=== PATIENT | female | born 1945 | race African-American/Black ===

== ENCOUNTER 2018-01-01 08:58 | Emergency (ER) | payer BC ==
[~2018-01-01] VITALS: Ht 160 cm; Wt 79.4 kg
[~2018-01-01 08:58] MED LIST: AFEDITAB CR60 M1 PO; COZAAR 50 MG TA50 M2 PO
[2018-01-01] MEDS ORDERED: FISH OIL 1,001000 M2 PO (09:10)
[2018-01-01] MEDS ORDERED: CENTRUM SILVER1 EAC4 PO (09:10)
[2018-01-01] MEDS ORDERED: AMITRIPTYLINE H25 M4 PO (09:11)
== END 2018-01-01 10:15 | disposition home or self-care (01) ==
LOC: ER 08:58
DX: S93.401A Sprain of unspecified ligament of right ankle, initial encounter (principal); X50.3XXA Overexertion from repetitive movements, initial encounter; Y93.89 Activity, other specified; Y92.89 Other specified places as the place of occurrence of the external cause; Y99.8 Other external cause status

== ENCOUNTER 2019-01-05 09:05 | Emergency (ER) | payer BC ==
[~2019-01-05] VITALS: Ht 160 cm; Wt 78.9 kg
[~2019-01-05 09:05] MED LIST changes: +AMITRIPTYLINE H25 M4 PO; +CENTRUM SILVER1 EAC4 PO; +FISH OIL 1,001000 M2 PO
[2019-01-05 10:12] LABS: EOSINOPHILS 1.7 % (0.0-3.0); HEMOGLOBIN 13.9 gm/dL (12.0-15.0); MCH 28.9 pg (26.0-34.0); MCHC 33.9 g/dL (28.0-37.0); MCV 85.2 fL (80.0-100.0); MONOCYTES 9.5 % (1.0-8.0); PLATELET COUNT 217 thou/uL (150-400); POLYS 53.8 % (36.0-66.0); RBC 4.81 mil/uL (4.20-5.00); RDW 13.1 % (10.5-14.5); WBC 5.6 thou/uL (4.0-11.0)
[2019-01-05 10:17] LABS: CALCIUM 9.8 mg/dL (8.5-10.1); POTASSIUM 3.4 mmol/L (3.5-5.1)
[2019-01-05] MEDS ORDERED: CETIRIZINE HCL5 MG PO (10:38)
[2019-01-05] MEDS ORDERED: AFRIN30 ML NASAL (10:38)
[2019-01-05] MEDS ORDERED: PROMETH-CODEIN 65 ML PO (10:38)
[2019-01-05 11:10] VITALS: BP 131/68
--- NOTE | 2019-01-05 12:19 | EKG ---
[place] [address] [employer] [place] [address] ELECTROCARDIOGRAM REPORT Name: VIRIDIANA PATTON [id number] ������������������ Admission: 01/05/19 ������������������ Attend Phys: Discharge: 01/05/19 ������������������ Date of : 49 Report #: [id number] ����������������������������������������������������������������� [id number] THIS REPORT FOR: //name// [facility] ED Test Date: 2019-01-05 Test Time: 10:56:33 Pat Name: VIRIDIANA PATTON Department: Room: Gender: F Licensing Coordinator: KOKI : 1945 Requested By: Rashid Koch Order Number: [id number] MD: Edu Paredes Measurements Intervals [place] Rate: 67 P: 48 [place]: 155 QRS: -17 QRSD: 77 T: 32 QT: 560 QTc: 592 Interpretive Statements Sinus rhythm LVH by voltage Leftward axis Borderline left atrial enlargement Poor R-wave progression Nonspecific ST-T wave changes Baseline wander Compared to ECG 09/30/2007 11:12:49 No significant changes Electronically Signed On 01-05-2019 12:19:10 BLADE CHANGER by Edu Paredes [email or web address] ��������������������������������������������� <ELECTRONICALLY SIGNED> ���������������������������������������� By: Edu Paredes MD ��������������������������������������������� 01/05/19 1219 1056 1056 Edu Paredes MD /EPI
== END 2019-01-05 11:12 | disposition home or self-care (01) ==
LOC: ER 09:05
PROVIDERS: Physician Assistant
DX: R05 Cough (principal); R09.82 Postnasal drip; R09.3 Abnormal sputum

== ENCOUNTER 2020-03-23 10:18 | Emergency (ER) | payer BC ==
[~2020-03-23] VITALS: Ht 160 cm; Wt 81.2 kg
[~2020-03-23 10:18] MED LIST changes: +AFRIN30 ML NASAL; +CETIRIZINE HCL5 MG PO; +PROMETH-CODEIN 65 ML PO
[2020-03-23 11:07] LABS: ABSOLUTE NEUTROPHILS 2.7 thou/uL (1.4-8.2); BASOPHILS 1.2 % (0.0-2.0); EOSINOPHILS 3.2 % (0.0-3.0); HEMATOCRIT 39.6 % (37.0-47.0); HEMOGLOBIN 13.3 gm/dL (12.0-15.0); LYMPHOCYTES 42.8 % (24.0-44.0); MCH 29.1 pg (26.0-34.0); MCHC 33.6 g/dL (28.0-37.0); MCV 86.5 fL (80.0-100.0); MONOCYTES 11.3 % (1.0-8.0); PLATELET COUNT 208 thou/uL (150-400); POLYS 41.5 % (36.0-66.0); RBC 4.58 mil/uL (4.20-5.00); RDW 13.4 % (10.5-14.5); WBC 6.4 thou/uL (4.0-11.0)
[2020-03-23 11:22] LABS: ANION GAP 7 mmol/L (7-16); BUN 20 mg/dL (7-18); CALCIUM 9.4 mg/dL (8.5-10.1); CHLORIDE 103 mmol/L (98-107); CO2 29 mmol/L (21-32); CREATININE 0.9 mg/dL (0.6-1.0); GLUCOSE 98 mg/dL (74-106); POTASSIUM 3.4 mmol/L (3.5-5.1); SODIUM 139 mmol/L (136-145)
[2020-03-23 11:33] LABS: TROPONIN-I <0.06 ng/mL (<0.06)
[2020-03-23 12:20] VITALS: BP 120/67
--- NOTE | 2020-03-24 08:06 | EKG ---
[facility] [place] [address] ELECTROCARDIOGRAM REPORT Name: VIRIDIANA PATTON Room #: [facility]#: [id number] Admission: 03/23/20 Attend Phys: Discharge: 03/23/20 Date of : 49 Report #: [id number] THIS REPORT FOR: cc: Kori Martini MD, Karla L. MD Lundgren,Pineda Mojica MD [facility] ~ THIS REPORT FOR: //name// [facility] ED Test Date: 2020-03-23 Test Time: 10:25:10 Pat Name: VIRIDIANA PATTON Department: Room: Gender: F Banana Expert: PHILIP : 1945 Requested By: Dave Rivera Order Number: [id number] MD: Pineda Miles Measurements Intervals [place] Rate: 75 P: 52 [place]: 139 QRS: -18 QRSD: 91 T: -5 QT: 395 QTc: 442 Interpretive Statements Sinus rhythm Multiple premature complexes, vent & supraven Borderline T abnormalities Baseline wander in lead(s) II,aVF Compared to ECG 01/05/2019 10:56:33 Ventricular and supraventricular complexes are now present Electronically Signed On 03-24-2020 8:04:10 CDT by Pineda Miles [email or web address] <ELECTRONICALLY SIGNED> By: Pineda Miles MD, [facility] 03/24/20 0804 1025 1025 Pineda Miles MD, [facility] /EPI
== END 2020-03-23 12:10 | disposition home or self-care (01) ==
LOC: ER 10:18
PROVIDERS: Emergency Medicine
DX: R10.13 Epigastric pain (principal); R07.89 Other chest pain; K21.9 Gastro-esophageal reflux disease without esophagitis; I10 Essential (primary) hypertension; I25.2 Old myocardial infarction; Z79.899 Other long term (current) drug therapy

== ENCOUNTER → 2020-05-05 | Outpatient (CLI) | payer OTHER | LOC: CAT 13:49 | PROVIDERS: ATTEND Internal Medicine | DX: Z13.6 Encounter for screening for cardiovascular disorders (principal); I25.10 Atherosclerotic heart disease of native coronary artery without angina pectoris; E78.00 Pure hypercholesterolemia, unspecified ==

== ENCOUNTER → 2020-06-10 | Outpatient (CLI) | payer BC, OTHER ==
[~2020-06-10] MED LIST changes: +COZAAR 25 MG TA25 M1 PO; +CRESTOR10 MG PO; +FLEXERIL PO
== END ==
LOC: SJCVCIMAG 07:52
PROVIDERS: ATTEND Internal Medicine
DX: R00.1 Bradycardia, unspecified (principal); I51.7 Cardiomegaly; I25.10 Atherosclerotic heart disease of native coronary artery without angina pectoris; R93.89 Abnormal findings on diagnostic imaging of other specified body structures; Z79.899 Other long term (current) drug therapy

== ENCOUNTER → 2020-06-16 | Outpatient (CLI) | payer BC ==
[~2020-06-16] VITALS: Ht 160 cm; Wt 78.6 kg
[2020-06-16 10:01] VITALS: BP 152/66
[2020-06-16 13:19] LABS: HEMATOCRIT 39.7 % (37.0-47.0); HEMOGLOBIN 13.3 gm/dL (12.0-15.0); MCH 29.3 pg (26.0-34.0); MCHC 33.5 g/dL (28.0-37.0); MCV 87.6 fL (80.0-100.0); RBC 4.53 mil/uL (4.20-5.00); RDW 13.3 % (10.5-14.5); WBC 6.6 thou/uL (4.0-11.0)
[2020-06-16 14:04] LABS: CALCIUM 9.4 mg/dL (8.5-10.1); CREATININE 0.9 mg/dL (0.6-1.0); POTASSIUM 3.2 mmol/L (3.5-5.1)
--- NOTE | 2020-06-24 11:12 | CATHLAB ---
[facility] [place] [address] INVASIVE PROCEDURE REPORT Name: VIRIDIANA PATTON Room #: REG [facility] Angie#: [id number] Admission: 06/16/20 Attend Phys: Edu Paredes Discharge: Date of : 49 Report #: [id number] THIS REPORT FOR: cc: Kori Martini MD, Karla L. MD Lammoglia, Francisco J. MD ~ APPROVED REPORT Study performed: 06/16/2020 11:44:00 Patient Details Patient Status: Out-Patient Room #: The patient is a 74 year-old female Event Personnel Edu Paredes Votator Machine Operator, Maik Deshpande RN RN, Jackelyn Cano RN RN, Gita Reeves RTR Scrub, Slime Dunbar RTR, LEAD BASED PAINT TECHNICIAN Scrub, January Norton Monitor Procedures Performed Art Access - R femoral artery* Left Heart Cath w/or w/o Coronaries [id number] [address] Initial Mod Sed Same Phys/QHP Gr5y [id number] 99440 Mod Sed Same Phys/QHP Ea 594236 Hemostasis with Manual pressure supervision of conscious sedation Indication Positive stress test, Chest pain Procedure Narrative The Right Groin^ was infiltrated with 1% Lidocaine subcutaneous anesthesia. A PINNACLE 4FR Sheath #[id number] sheath was inserted into the RFA 4F^. Coronary angiography was performed using coronary diagnostic catheters. The right coronary system was accessed and visualized with a JR4 catheter. The left coronary system was accessed and visualized with a JL4 catheter. The left ventricle was accessed and visualized with a ANGLE PIG catheter. The patient tolerated the procedure well and there were no complications associated with the procedure. There was no hematoma. Intraoperative Conscious Sedation Sedation start time: 1246 Case end Time: 1315 Versed 2 mg [facility] [place] [address] INVASIVE PROCEDURE REPORT Name: VIRIDIANA PATTON Room #: REG [facility]#: [id number] Admission: 06/16/20 Attend Phys: Edu Gudino Discharge: Date of : 49 Report #: [id number] Fluoro Time: 2.80 minutes Dose: DAP 4959.70 cGycm2 726 mGy Contrast Type and Amount: Omnipaque 50 ml Coronary Angiography The patient's coronary anatomy is right dominant. Diagnostic Cath Left Main Large-caliber normal origin bifurcates left into descending left circumflex. Mild irregularities are noted but no high-grade lesion it is quite short in length and essentially nonexistent requiring 6 separate torquing of the catheter to image the respective branch LAD Moderate caliber type III vessel which courses in the anterior interventricular sulcus. Gives rise to moderate-sized diagonal and septal perforators of the procedure in the anterior sulcus in a tortuous mode without high-grade lesions noted Diagonal 1 Moderate caliber vessel coursing on the anterolateral wall with only luminal irregularities noted no high-grade lesion Diagonal 2 Small diminutive vessel without significant Circumflex Large-caliber vessel with separate ostium coursing on the lateral aspect heart giving rise to a large marginal branch and a posterior wall marginal branch and then terminates a small caliber vessel in the posterior aspect of the left ventricle OM1 Moderate to large caliber bifurcating vessel which has mild irregularities but no high-grade obstructive lesion OM2 Moderate caliber posterior wall marginal branch free of high-grade disease Right Coronary Moderate caliber dominant vessel courses in the AV groove giving rise to moderate-sized RV marginal branch which is free of high-grade disease but tortuous in its course. The RCA proper the and continues to the crux of the heart and terminates as a small posterior descending artery no high-grade lesions are noted R PDA Small caliber vessel without high-grade lesions present Left Ventriculography Left Ventriculography was not performed. Hemodynamics The aortic pressure is 169/78 mmHg with a mean of 51 mmHg. The left ventricular pressure is 164/6 mmHg with a mean of mmHg. The left ventricular end diastolic pressure is 20 mmHg. Conclusion 1. Essentially normal coronary arteries with minimal plaquing noted [facility] [address] [place] [address] INVASIVE PROCEDURE REPORT Name: VIRIDIANA PATTON Room #: REG [facility]#: [id number] Admission: 06/16/20 Attend Phys: Edu Gudino Discharge: Date of : 49 Report #: [id number] in the left anterior descending and right coronary arteries 2. Normal hemodynamic Recommendations Cardiac Risk Reduction Program Medical Therapy <ELECTRONICALLY SIGNED> By: Edu Paredes MD 06/24/201111 11 11 Edu Paredes MD /INF
== END | disposition home or self-care (01) ==
LOC: CATH 09:06
PROVIDERS: ATTEND Internal Medicine
DX: R07.9 Chest pain, unspecified (principal); R94.39 Abnormal result of other cardiovascular function study; I25.10 Atherosclerotic heart disease of native coronary artery without angina pectoris; I10 Essential (primary) hypertension; E78.5 Hyperlipidemia, unspecified; F41.9 Anxiety disorder, unspecified; M19.90 Unspecified osteoarthritis, unspecified site; K21.9 Gastro-esophageal reflux disease without esophagitis; Z98.890 Other specified postprocedural states; Z79.899 Other long term (current) drug therapy; Z82.49 Family history of ischemic heart disease and other diseases of the circulatory system; Z90.710 Acquired absence of both cervix and uterus; Z88.8 Allergy status to other drugs, medicaments and biological substances